=== PATIENT | female | born 1990 | race Two or more races ===

== ENCOUNTER 2024-05-24 08:53 | Emergency (ER) | payer MEDICAID, SELFPAY ==
--- NOTE | ~2024-05-24 | XR_ITS ---
EXAMINATION: XR CHEST CLINICAL INFORMATION: cough COMPARISON: CTA chest 02/23/2018 and chest x-ray 02/22/2018. TECHNIQUE: 2 views of the chest were obtained. FINDINGS: Lungs are well-expanded and clear of acute process. Heart size and pulmonary vascularity is normal. No gross bony abnormality seen. XR/XR chest 2V IMPRESSION: No acute cardiopulmonary process seen. Electronically signed by: Gucci Muñoz MD 05/24/2024 09:32 AM EST
[2024-05-24 09:01] VITALS: BP 125/50; PULSE 82; RESP 20; TEMP 36.3; O2SAT 100; BMI 27.1
[2024-05-24 09:25] LABS: IDNOW Serial# 6674DD1D; Strep A Nucleic Acid Negative (Negative)
--- NOTE | 2024-05-24 09:30 | ED_ITS ---
HPI - URI/Sore Throat General Chief Complaint: Upper Respiratory Symptoms Stated Complaint: Sore throat Time Seen by Provider: 05/24/24 09:16 Source: patient Mode of arrival: ambulatory Limitations: no limitations History of Present Illness ED Provider: Lianna Toribio PA-C HPI Narrative: 33 yo female presents to the ER for evaluation of sore throat and cough for the last 4 days. She has children at home who recently sick. She reports chest wall pain when she coughs along with a sore throat. No fevers but she has had intermittent chills. She has had a runny nose as well. No nausea, vomiting, abdominal pain. No difficulty breathing or dyspnea on exertion. No leg swelling. She reports history of asthma but does not have an inhaler at home. She denies any wheezing. Her cough is nonproductive. MD elicited complaint: cough and sore throat Pertinent past history: asthma Onset (ago): day(s) Consistency: progressively worsening Severity: moderate Able to tolerate fluids by mouth: Yes Exacerbating factors: supine positioning Relieving factors: nothing Context: sick contacts Associated symptoms: chills, headache, rhinorrhea, nasal congestion, sore throat, cough and chest pain Treatments prior to arrival: none Related Data Previous Rx's ?Medication ?Instructions ?Recorded albuterol sulfate 90 mcg/actuation 1 inh inhalation QID PRN shortness 05/24/24 aerosol inhaler of breath or wheezing #6.7 grams Allergies Allergy/AdvReac Type Severity Reaction Status Date / Time No Known Allergies Allergy Verified 05/24/24 09:03 [No Known Allergies*] Review of Systems Review of Systems: Yes all other systems are reviewed and are negative [facility] Past Medical History Medical History (Updated 05/24/24 @ 10:12 by AGNIESZKA Jeronimo) Asthma Social History Social History Advance Directives: No Advance Directives Information Provided: Yes Do you have a plan to hurt others: No Plan Physical Exam Vital Signs: Vital Signs: Last Vital Signs Temp 97.3 F 05/24/24 09:01 Pulse 82 05/24/24 09:01 Resp 20 05/24/24 09:01 BP 125/50 L 05/24/24 09:01 Pulse Ox 100 05/24/24 09:01 O2 Del Method Room Air 05/24/24 09:01 BMI result Body Mass Index 27.1 Appearance: Alert. Oriented X3. No acute distress. Head: normocephalic, atraumatic. Eyes: Pupils equal, round and reactive to light. ENT: Pharynx with mild posterior pharyngeal erythema. No tonsillar swelling or exudate. Clear nasal discharge Neck: Normal inspection. Neck supple. CVS: Normal heart rate and rhythm. Pulses normal. Respiratory: No respiratory distress. Breath sounds normal. Dry cough noted Abdomen: Soft and nontender. +BS x4 Skin: Skin warm and dry. Normal skin color. Normal skin turgor. No rashes. Extremities: No lower extremity edema. No joint swelling. Neuro/psych: Oriented X 3. Grossly normal, nonfocal Normal speech and cognition. Medical Decision Making Medical Decision Making [facility] Narrative: 33-year-old female with history mild intermittent asthma, not currently on any medications for this who presents to the ER for evaluation of URI symptoms, cough for the last 4 days after known exposure to her sick children. On arrival to the ER patient is afebrile, hemodynamically stable, not tachycardic or in any respiratory distress. She is saturating 100% on room air. On examination her l leo sounds are clear, no evidence of acute asthma exacerbation, no wheezing. Chest x-ray performed which does not show any evidence of pneumonia. Viral testing is positive for RSV. Patient was counseled on diagnosis and supportive care as management. Will prescribe p.r.n. albuterol inhaler as she does not have 1 at home. She is stable for discharge home, return precautions were discussed. Stable for DC Differential Diagnosis Differential Diagnoses: The differential diagnosis associated with the presentation includes strep, covid, flu, rsv, other viral syndrome, bronchitis, pneumonia, no evidence of peritonsillar abcsess or retropharyngeal abscess Lab Data [facility] Lab Attestation statement: I reviewed the patient's lab results. Negative viral swabs, negative strep Labs: Lab Results 05/24/24 Range/Units 09:09 Influenza Type A (PCR) NEGATIVE (Negative) Influenza Type B (PCR) NEGATIVE (Negative) RSV RNA Qual (PCR) POSITIVE A (Negative) SARS-CoV-2 RNA (RT-PCR) NEGATIVE (Negative) S. pyogenes GrpA AVA Negative (Negative) Independent Interpretation I performed an independent interpretation of an: Plain X-Ray Interpretation: Chest x-ray without any focal infiltrate or evidence of pneumonia Radiology Impression Discussion of test interpretation with radiology: I have reviewed the radiologist's reading. External Record Review External record reviewed: Outpatient record and Prior outpatient labs Tests considered The following testing was considered but not selected: Considered EKG, low suspicion for cardiac etiology of her chest discomfort Prescription Management I considered prescription management with: Pain Medication and Antibiotic Chronic Conditions Patient?s care impacted by: Other (Asthma) Critical Care Time Critical Care Time Critical Care Time: No Discharge Plan Discharge Clinical Impression: RSV infection Qualifiers: RSV infection type: unspecified Qualified Code(s): B33.8 - Other specified viral diseases Patient Disposition: Home, Self-Care Instructions: Respiratory Syncytial Virus (ED) Additional Instructions: You tested positive for RSV. It is a common, very contageous respiratory virus. Treatment is supportive care. Rest and drink plenty of fluids. Take over the counter cold/flu medications as needed for your symptoms. Take motrin and tylenol as needed for pain and fever. Use warm salt water gargles 2 times per day for sore throat. Recommend over the counter Chloraseptic spray and Cepacol lozenges for sore throat. Use the prescribed albuterol inhaler as needed for shortness of breath or wheezing. Follow up with your doctor as needed. If you develop new or worsening symptoms call 911 or come back to the ER for further evaluation. Prescriptions: New albuterol sulfate 90 mcg/actuation HFA aerosol inhaler 1 inh inhalation QID PRN (Reason: shortness of breath or wheezing) Qty: 6.7 0RF Referrals: [facility] [Primary Care Provider] - Stand Alone Forms: Work/School Release Interventions: ED Discharge Assessment Last Done: 05/24/24 10:17 Print Language: Tajik
[2024-05-24 09:58] LABS: Influenza A PCR NEGATIVE (Negative); Influenza B PCR NEGATIVE (Negative); Resp Syncy Virus RNA Qual PCR POSITIVE (Negative); SARS COV2 PCR INHOUSE NEGATIVE (Negative)
[2024-05-24 10:17] VITALS: BP 121/58; PULSE 76; RESP 18; TEMP 36.6; O2SAT 100
== END 2024-05-24 10:19 | disposition home or self-care (01) ==
PROVIDERS: Emergency Provider Emergency Medicine
DX: J45.20 Mild intermittent asthma, uncomplicated (principal); B97.4 Respiratory syncytial virus as the cause of diseases classified elsewhere; J02.9 Acute pharyngitis, unspecified; R05.9 Cough, unspecified; Z03.818 Encounter for observation for suspected exposure to other biological agents ruled out
CPT/HCPCS: 0241U; 71046; 87651; 99282; 99283

== ENCOUNTER → 2024-05-24 09:04 | Outpatient (BNV) | payer MEDICAID, SELFPAY | PROVIDERS: Emergency Provider Emergency Medicine; Visit Provider Radiology Diagnostic Radiology | DX: R05.9 Cough, unspecified (principal) | CPT/HCPCS: 71046 ==

== ENCOUNTER 2024-06-18 09:08 | Emergency (ER) | payer MEDICAID, SELFPAY ==
[2024-06-18 09:15] VITALS: BP 121/75; PULSE 106; RESP 20; TEMP 37.2; O2SAT 99; BMI 26.6
[2024-06-18 09:37] LABS: IDNOW Serial# 08D9AD1C; Strep A Nucleic Acid Positive (Negative)
--- NOTE | 2024-06-18 09:46 | ED_ITS ---
HPI - URI/Sore Throat General Chief Complaint: Upper Respiratory Symptoms Stated Complaint: Cough, R side pain Time Seen by Provider: 06/18/24 09:38 Source: patient and old records reviewed Mode of arrival: ambulatory Limitations: no limitations History of Present Illness ED Provider: JOE MARTINO Narrative: 33 yo female with PMH of asthma who has rescue inhaler at home comes in with cough, URI symptoms, sore throat x 3 days. She has fevers and chills but has not taken any OTC medications today. She is able to eat and drink her stomach muscles hurt when she coughs. She has no n/v/d. She notes dry cough. She is carrying her inhaler. MD elicited complaint: fever, cough and sore throat Pertinent past history: asthma Onset (ago): day(s) (3) Consistency: constant Severity: moderate Able to tolerate fluids by mouth: Yes Exacerbating factors: swallowing and other (coughing) Relieving factors: OTC cold medicine Associated symptoms: fever, chills, sore throat and cough Treatments prior to arrival: none Related Data Previous Rx's ?Medication ?Instructions ?Recorded albuterol sulfate 90 mcg/actuation 1 inh inhalation QID PRN shortness 05/24/24 aerosol inhaler of breath or wheezing #6.7 grams amoxicillin 500 mg capsule 500 mg PO BID 10 days #20 caps 06/18/24 famotidine 20 mg tablet (Pepcid) 20 mg PO DAILY PRN abdominal 06/18/24 discomfort #30 tabs ibuprofen 600 mg tablet 600 mg PO Q6H PRN pain #30 tabs 06/18/24 prednisone 20 mg tablet 40 mg (2 x 20 mg) PO DAILY 5 days 06/18/24 #10 tabs Allergies Allergy/AdvReac Type Severity Reaction Status Date / Time No Known Allergies Allergy Verified 06/18/24 09:17 [No Known Allergies*] Review of Systems Review of Systems: Constitutional : pos Fever, pos Chills ENT/Mouth : No Hoarseness, pos sore throat, No Rhinorrhea Eyes: No Redness, No Discharge, No Vision Changes Cardiovascular : No Chest Pain, positive SOB, positive Dyspnea on Exertion, No Edema Respiratory : positive Cough, No Sputum, positive Wheezing, Gastrointestinal : No Nausea, No Vomiting, No Diarrhea, No abdominal Pain Genitourinary : No Dysuria, No Hematuria Musculoskeletal : No joint pain, No Myalgias Skin : No rash Neuro : No Weakness, No Numbness, No Headache All other systems reviewed and are negative [facility] Past Medical History Attestation statement: The following information was validated with the patient. Source: old records reviewed Medical History Asthma Social History Social History (Updated 06/18/24 @ 10:11 by Molly Arteaga DO) Patient Tobacco Use Status: Never used Tobacco Physical Exam Vital Signs: Vital Signs: Last Vital Signs Temp 98.9 F 06/18/24 09:15 Pulse 106 H 06/18/24 09:15 Resp 20 06/18/24 09:15 BP 121/75 06/18/24 09:15 Pulse Ox 99 06/18/24 09:15 O2 Del Method Room Air 06/18/24 09:15 BMI result Body Mass Index 26.6 Appearance: Alert. Oriented X3. No acute distress. Eyes: Pupils equal, round and reactive to light. ENT: Pharynx moderate erythema mild exudates uvula is midline, no drooling and voice is normal. Neck: Normal inspection. Neck supple. CVS: Normal heart rate and rhythm. Pulses normal. Respiratory: No respiratory distress. Breath sounds normal. Dry cough Abdomen: Soft and [id number]. Skin: Skin warm and dry. Normal skin color. Normal skin turgor. Extremities: No lower extremity edema. No calf ttp Neuro: Oriented X 3. No motor deficit. No sensory deficit. CN2-12 intact Medical Decision Making Medical Decision Making [facility] Narrative: 33 yo female with PMH of asthma here with c/o URI symptoms and sore throat x 3 days with fevers, chills and dry cough that hurst her stomach muscles. She is able to eat and drink. On exam no concern for [employer] and deeper space infection. Will obtain viral panel, strep swab if strep positive will start on steroids, abx, motrin. With precautions to return. Differential Diagnosis Differential Diagnoses: The differential diagnosis associated with the presentation includes strep throat, flu a Admission/Observation Consideration of admission/observation: Escalation of care including admission/observation considered not toxic, tolerating pO stable for DC Lab Data [facility] Lab Attestation statement: I reviewed the patient's lab results. Labs: Lab Results 06/18/24 Range/Units 09:25 S. pyogenes GrpA AVA Positive A (Negative) External Record Review External record reviewed: Outpatient record Prescription Management I considered prescription management with: Antibiotic and Other Discharge Plan Discharge Clinical Impression: Strep throat Upper respiratory infection Qualifiers: URI type: acute pharyngitis Pharyngitis/tonsillitis etiology: streptococcus Qualified Code(s): J02.0 - Streptococcal pharyngitis Patient Disposition: Home, Self-Care Instructions: Pharyngitis (ED), Upper Respiratory Infection (ED) Additional Instructions: positive for strep throat return for any worsening symptoms or concerns rest and stay hydrated alternate tylenol and motrin for fevers/pain throw away tooth brush after 24 hours not infective after 12 hours Prescriptions: New famotidine [Pepcid] 20 mg tablet 20 mg PO DAILY PRN (Reason: abdominal discomfort) Qty: 30 0RF amoxicillin 500 mg capsule 500 mg PO BID 10 Days Qty: 20 0RF prednisone 20 mg tablet 40 mg PO DAILY 5 Days Qty: 10 0RF ibuprofen 600 mg tablet 600 mg PO Q6H PRN (Reason: pain) Qty: 30 0RF No Action albuterol sulfate 90 mcg/actuation HFA aerosol inhaler 1 inh inhalation QID PRN (Reason: shortness of breath or wheezing) Qty: 6.7 0RF Stand Alone Forms: Work/School Release Print Language: Vietnamese
--- OUTSIDE RECORDS SUMMARY | 2024-06-18 09:58 | XMS_ITS | Clinical Summary ---
Author Organization [facility] Address [address] [place] [address] Care Team Providers Care Network Program Manager Name Role Phone Anusha Donato MD Primary Care Provide r Active Problems Problem Noted Date Diagnosed Date Loss of hair 12/21/2023 Mild intermittent asthma 10/31/2016 Encounters Date Type Department Care Team Description 05/24/2024 Orders Only GENERIC EXTERNAL DATA DEPARTMENT Provider, Generic External Data from Last 3 Months Social History Tobacco Use Types Packs/Day Years Used Date Smoking Tobacco: Never Assessed Comments Unknown Sex and Gender Information Value Date Recorded Sex Assigned at Female 03/21/2022 10:31 AM EDT Legal Sex Female 10:31 AM EDT Gender Identity Female 03/21/2022 10:31 AM EDT Sexual Orientation Straight 03/21/2022 10 :31 AM EDT Last Filed Vital Signs Vital Sign Reading Time Taken Comments Blood Pressure 120/66 07/21/2021 12:03 AM EST Pulse 72 07/21/2021 12:03 AM EST Temperature - - Respiratory Rate - - Oxygen Saturation - - Inhaled Oxygen Concentration - - Weight 71.6 kg (157 lb 12.8 oz) 022 12:03 AM EST Height 166.4 cm (5' 5.5 ) 07/21/2021 12 :03 AM EST Body Mass Index 25.86 07/21/2021 12:03 AM EST Plan of Treatment Health Maintenance Due Date Last Done Comments Depression Screening 1992 SDOH Screening 1992 Pneumococcal Vaccine: Pediat rics (0 to 5 Years) and At-Risk Patients (6 to 64 Years) (1 of 2 - PCV) 1998 Alcohol/Substance Use Screening 2004 Tobacco Screening 2004 Family Planning (PISQ) 08/05/2007 Hepatitis C Screening 2010 DTaP/Tdap/Td Vaccines (1 - Tdap) 08/05/2011 Hepatitis B Vaccines (1 of 3 - 19+ 3-dose series) 08/05/2011 Pap Smear 2013 Cervical Cancer Screening 2022 HPV/Cotest 2022 COVID-19 Vaccine (1 - 2023-2 5 season) 2024 Influenza Vaccine (#1) 2024 Zoster Vaccines (1 of 2) 2042 RSV Patients and Pa tients Aged 60 years or older (1 - 1-dose 75+ series) 08/05/2067 HIV Screening Completed 04/24/2020 HIB Vaccines Aged Out No longer eligi ble based on patient's age to complete this topic HPV Vaccines Aged Out No longer eligi ble based on patient's age to complete this topic Hepatitis A Vaccines Aged Out No long er eligible based on patient's age to complete this topic IPV Vaccines Aged Out No longer eligi ble based on patient's age to complete this topic Meningococcal Vaccine Aged Out No goran yoseph eligible based on patient's age to complete this topic RSV under 20 months Aged Out No longe r eligible based on patient's age to complete this topic Rotavirus Vaccines Aged Out No longer eligible based on patient's age to complete this topic Procedures Procedure Name Priority Date/Time Associated Diagnosis Comments SARS COV2/INFLUENZA A/B AND RSV RNA QL NAAT Routine 05/24/2024 9:09 AM EST STREP A NUCLEIC ACID Routine 05/24/2024 9:09 AM EST XR CHEST 2 VIEWS Routine 05/24/2024 9:04 AM EST HIV 1/2 ANTIGEN/ANTIBODY, FOURTH GENERATION W/RFL Routine 04/24/2020 10:15 AM EST from Last 3 Months or Most Recently Relevant to Health Maintenance Results * Strep A Nucleic Acid (05/24/2024 9:09 AM EST) IDNOW SERIAL# [id number] [facility] Strep A Nucleic Acid Negative Negative [facility] Comment:All test results mus t be correlated with clinical findings.This test has not been evaluated for monitoring treatment ofinfection.Additional follow-up testing using the culture method isrequired if the result is negative and clinical symptomspersist, or in the event of an acute rheumatic feveroutbreak. 05/24/2024 9:09 AM EST 05/24/2024 9:13 AM EST Generic External Data Provider LAB MICROBIOLOGY - GENERAL ORDERABLES Final Result Performing Organization Address City/[facility]/ZIP Co de Phone Number [facility] [address] [place] [phone] * (ABNORMAL) SARS-CoV-2 RNA, Influenza A/B, and RSV RNA, Ql NAAT (05/24/2024 9:09 AM EST) Influenza A PCR NEGATIVE Negative [facility] Influenza B PCR NEGATIVE Negative [facility] Resp Syncy Virus RNA Qual PCR POSITIVE(A) Negative [facility] SARS COV2 PCR NEGATIVE Negative [facility] Comment:All test results mus t be correlated with clinical findings.Negative results do not preclude SARS-CoV2, influenza Avirus, influenza B virus and/or RSV infectionand should not be used as the sole basis for treatment orother patient management decisions. Negative results must becombined with clinical observations, patient history, andepidemiological information.This test has not been evaluated for monitoring treatment ofinfection.This test has been authorized by the FDA under an EmergencyUse Authorization (EUA) for use by authorized laboratories.Testing performed on the BO.LT GeneXpert utilizingreal-time RT-PCR.All SARS CoV2 and positive influenza A/B results arereported to [facility]. 05/24/2024 9:09 AM EST 05/24/2024 9:13 AM EST us Generic External Data Provider LAB MICROBIOLOGY - GENERAL ORDERABLES Final Result Performing Organization Address City/[facility]/ZIP Co de Phone Number [facility] [address] [place] [phone] * XR Chest 2 Views (05/24/2024 9:04 AM EST) Anatomical Region Laterality Modality Chest Radiographic Lyly ging 05/24/2024 9:04 AM EST Narrative 05/24/2024 9:35 AM EST ? [facility] ?[address] ?[place] [address] ?XRay Report ? Signed ? Patient: Renee Fuchs ?MR ?? #: [id number] ? : 1990 ?Acct:[id number] ? Age/Sex: 33 / F ?ADM Date: 05/24/24 ? Loc: HO.ED ? Attending Dr: ? Ordering Physician: Molly Arteaga DO ?? Date of Service: 05/24/24 ?? Procedure(s): XR chest 2V ?? Accession Number(s): [id number] ? cc: Molly Arteaga DO; [facility] ? EXAMINATION: ?? XR CHEST ? CLINICAL INFORMATION: ?? cough ? COMPARISON: ?? CTA chest 02/23/2018 and chest x-ray 02/22/2018. ? TECHNIQUE: ?? 2 views of the chest were obtained. ? FINDINGS: ?? Lungs are well-expanded and clear of acute process. Heart size and ?? pulmonary vascularity is normal. No gross bony abnormality seen. ? XR/XR chest 2V ?? IMPRESSION: No acute cardiopulmonary process seen. ? Electronically signed by: ??Gucci Muñoz MD ??05/24/2024 09:32 AM EST RP ? Dictated By: ?Wanda,Gucci S MD ? Signed By: ?<Electronically signed by Gucci S Wanda, MD in OV> ?05/24/24 0932 ? DD/ 0904 ? TD/TT: 05/24/24 0922 ? Service Writer: MSM ? Procedure Note Nathalie, Image - 05/24/2024 [facility] [address] [place] [address] XRay Report Signed Patient: Renee Fuchs [facility] #: [id number] : 1990Acct:[id number] Age/Sex: 33 / FADM Date: 05/24/24 Loc: HO.ED Attending Dr: Ordering Physician: Molly Arteaga DO Date of Service: 05/24/24 Procedure(s): XR chest 2V Accession Number(s): [id number] cc: Molly Arteaga DO; [facility] EXAMINATION: XR CHEST CLINICAL INFORMATION: cough COMPARISON: CTA chest 02/23/2018 and chest x-ray 02/22/2018. TECHNIQUE: 2 views of the chest were obtained. FINDINGS: Lungs are well-expanded and clear of acute process. Heart size and pulmonary vascularity is normal. No gross bony abnormality seen. XR/XR chest 2V IMPRESSION: No acute cardiopulmonary process seen. Electronically signed by: Gucci Muñoz MD 05/24/2024 09:32 AM EST Dictated By: Gucci Muñoz MD Signed By: <Electronically signed by Gucci Muñoz MD in OV> 05/24/24 0932 DD/ 0904 TD/TT: 05/24/24 0922 Service Writer: [facility] External Provider IMG XR PROCEDURES Final Result * HIV 1/2 ANTIGEN/ANTIBODY,FOURTH GENERATION W/RFL (04/24/2020 10:15 AM EST) HIV-1/2 ANTIGEN AND ANTIBODIES, 4TH GENERATION W/ REFLEX NON-REACT ALEX NON-REACT ALEX [facility] Comment: HIV-1 antigen and HIV-1/HIV-2 antibodies were not detected. There is no laboratory evidence of HIV infection. ?? PLEASE NOTE: This information has been disclosed to you from records whose confidentiality may be protected by state law. ??If your state requires such protection, then the state law prohibits you from making any further disclosure of the information without the specific written consent of the person to whom it pertains, or as otherwise permitted by law. A general authorization for the release of medical or other information is NOT sufficient for this purpose. ? For additional information please refer to http://education.[employer]/faq/TTS378 (This link is being provided for informational/ educational purposes only.) ? The performance of this assay has not been clinically validated in patients less than 2 years old. ?? 04/24/2020 10:1 5 AM EST us Halima Jorge MECHANICAL REPAIR WORKER LAB BLOOD ORDERABLES Final Resu lt [facility] Anywhere [address] from Last 3 Months or Most Recently Relevant to Health Maintenance Insurance [facility] Care Teams Network Program Manager Relationship Specialty Start Date End Date Anusha Donato MD [address] [place] [address] PCP - General Family Medicine 01/31/18
--- OUTSIDE RECORDS SUMMARY | 2024-06-18 09:58 | XMS_ITS | Encounter Summary ---
Author Organization [employer] [facility] Address [address] [place] [address] Care Team Providers Care Claims Analyst Name Role Phone Anusha Donato MD Primary Care Provide r Encounter Details Date Type Department Care Team (Late st Contact Info) Description 05/24/2024 Orders Only GENERIC EXTERNAL DATA DEPARTMENT Provider, Generic External Data Social History Tobacco Use Types Packs/Day Years Used Date Smoking Tobacco: Never Assessed Comments Unknown Sex and Gender Information Value Date Recorded Sex Assigned at Female 03/21/2022 10:31 AM EDT Legal Sex Female 10:31 AM EDT Gender Identity Female 03/21/2022 10:31 AM EDT Sexual Orientation Straight 03/21/2022 10 :31 AM EDT documented as of this encounter Plan of Treatment Not on file documented as of this encounter Procedures Procedure Name Priority Date/Time Associated Diagnosis Comments STREP A NUCLEIC ACID Routine 05/24/2024 9:09 AM EST SARS COV2/INFLUENZA A/B AND RSV RNA QL NAAT Routine 05/24/2024 9:09 AM EST XR CHEST 2 VIEWS Routine 05/24/2024 9:04 AM EST documented in this encounter Results * (ABNORMAL) SARS-CoV-2 RNA, Influenza A/B, and RSV RNA, Ql NAAT (05/24/2024 9:09 AM EST) Influenza A PCR NEGATIVE Negative [facility] Influenza B PCR NEGATIVE Negative [facility] Resp Syncy Virus RNA Qual PCR POSITIVE(A) Negative [facility] SARS COV2 PCR NEGATIVE Negative [facility] Comment:All test results mus t be [...] use by authorized laboratories.Testing performed on the [place] GeneXpert utilizingreal-time RT-PCR.All SARS CoV2 and positive influenza A/B results arereported to [facility]. 05/24/2024 9:09 AM EST 05/24/2024 9:13 AM EST Generic External Data Provider LAB MICROBIOLOGY - GENERAL ORDERABLES Final Result Performing Organization Address [facility] Co de Phone Number [facility] [address] [place] [phone] * Strep A Nucleic Acid (05/24/2024 9:09 AM EST) Pathologist [facility] [employer]NOW SERIAL# [id number] [facility] Strep A Nucleic Acid Negative Negative [facility] Comment:All test results mus t [...] GENERAL ORDERABLES Final Result Performing Organization Address [facility] Co de Phone Number [facility] [address] [place] [phone] * XR Chest 2 Views (05/24/2024 9:04 AM EST) Anatomical Region Laterality Modality Chest Radiographic Lyly ging 05/24/2024 9:04 AM EST Narrative 05/24/2024 9:35 AM EST ? [facility] ?[address] ?[place], [place] [address] ?XRay Report ? Signed ? Patient: Renee Fuchs ?MR ?? #: [id number] ? : 1990 ?Acct:[id number] ? Age/Sex: 33 / F ?ADM Date: 05/24/24 ? Loc: HO.ED ? Attending Dr: ? Ordering Physician: Molly Arteaga DO ?? Date of Service: 05/24/24 ?? Procedure(s): XR chest 2V ?? Accession Number(s): [id number] ? cc: Molly Arteaga DO; [facility] ? EXAMINATION: ?? XR CHEST ? CLINICAL [...] 09:32 AM EST RP ? Dictated By: ?Gucci Muñoz MD ? Signed By: ?<Electronically signed by Gucci Muñoz MD in OV> ?05/24/24 0932 ? DD/ 3 ? TD/TT: 05/24/24921 ? Information Technology Architect: MSM ? Procedure Note Erik Zelaya - 05/24/[address] [address] XRay Report Signed Patient: Renee Fuchs MMR #: [id number] : 1990Acct:[id number] Age/Sex: 33 / FADM Date: 05/24/24 Loc: HO.ED Attending Dr: Ordering Physician: Molly Arteaga DO Date of Service: 05/24/24 Procedure(s): XR chest 2V Accession Number(s): [id number] cc: Molly Arteaga DO; [facility] EXAMINATION: XR CHEST CLINICAL INFORMATION: cough COMPARISON: [...] signed by Gucci Muñoz MD in OV> 05/24/2432 DD/ 0904 TD/TT: 05/24/24 09 Information Technology Architect: [facility] External Provider IMG XR PROCEDURES Final Result documented in this encounter Visit Diagnoses Not on filedocumented in this encounter Care Teams Claims Analyst Relationship Specialty Start Date End Date Anusha Donato MD [address] [place] [address] PCP - General Family Medicine 01/31/18 documented as of this encounter
[2024-06-18 10:15] LABS: Influenza A PCR NEGATIVE (Negative); Influenza B PCR NEGATIVE (Negative); Resp Syncy Virus RNA Qual PCR NEGATIVE (Negative); SARS COV2 PCR INHOUSE NEGATIVE (Negative)
[2024-06-18 10:19] VITALS: BP 121/75; PULSE 106; RESP 20; TEMP 37.2; O2SAT 99
== END 2024-06-18 10:19 | disposition home or self-care (01) ==
PROVIDERS: Emergency Provider Emergency Medicine
DX: J02.0 Streptococcal pharyngitis (principal); R05.9 Cough, unspecified; R50.9 Fever, unspecified; Z03.818 Encounter for observation for suspected exposure to other biological agents ruled out
CPT/HCPCS: 0241U; 87651; 99282; 99283